=== PATIENT | male | born 1995 | race Two or more races ===

== ENCOUNTER 2017-06-08 18:50 | Emergency (ER) | payer MEDICAID ==
[~2017-06-08] VITALS: Ht 177.8 cm; Wt 86.2 kg
[2017-06-08 19:02] VITALS: BP 140/84
[2017-06-08] MEDS ORDERED: KETOROLAC TROMETH 60MG/2ML VIAL IM ONE (21:30)
== END 2017-06-08 22:38 | disposition home or self-care (01) ==
LOC: ER 18:50
DX: M25.512 Pain in left shoulder (principal); X50.0XXA Overexertion from strenuous movement or load, initial encounter; Y93.89 Activity, other specified; Y99.8 Other external cause status; Y92.89 Other specified places as the place of occurrence of the external cause
CPT/HCPCS: 73030; 73200; 96372; 99284; J1885

== ENCOUNTER 2018-01-25 00:16 | Emergency (ER) | payer SELFPAY ==
[~2018-01-25] VITALS: Ht 177.8 cm; Wt 81.6 kg
[2018-01-25 00:36] VITALS: BP 136/83
== END 2018-01-25 05:39 | disposition home or self-care (01) ==
LOC: ER 00:18
DX: S90.02XA Contusion of left ankle, initial encounter (principal); X58.XXXA Exposure to other specified factors, initial encounter; Y93.89 Activity, other specified; Y99.8 Other external cause status; Y92.89 Other specified places as the place of occurrence of the external cause
CPT/HCPCS: 73590; 73610

== ENCOUNTER 2020-10-21 19:31 | Emergency (ER) | payer MEDICAID ==
[~2020-10-21] VITALS: Ht 170.2 cm; Wt 106.6 kg
[2020-10-21 22:30] VITALS: BP 134/70
[2020-10-22] MEDS ORDERED: ACETAMINOPHEN/CODEINE#3 (300/30mg) TAB PO ONE (02:00)
[2020-10-22] MEDS ORDERED: cefTRIAXone SOD 1,000 MG VL IM ONE (02:15)
[2020-10-22] MEDS ORDERED: TETANUS-DIPTH-ACEL PERTUSSIS 0.5ML SYR Tdap IM ONE (02:15)
[2020-10-22] MEDS ORDERED: KETOROLAC TROMETH 60MG/2ML VIAL IM ONE (03:15)
== END 2020-10-22 03:19 | disposition home or self-care (01) ==
LOC: ER 19:39
DX: S61.217A Laceration without foreign body of left little finger without damage to nail, initial encounter (principal); X58.XXXA Exposure to other specified factors, initial encounter; Y93.89 Activity, other specified; Y92.89 Other specified places as the place of occurrence of the external cause; Y99.8 Other external cause status
CPT/HCPCS: 29125; 73130; 73200; 90471; 90715; 96372; 99285; J0696; J1885; 12001